=== PATIENT | female | born 2000 | race Two or more races ===

== ENCOUNTER → 2023-09-14 | Emergency (ER) | payer OTHER ==
[~2023-09-14] VITALS: Ht 162.6 cm; Wt 54.0 kg
[2023-09-14 14:10] VITALS: BP 141/64; TEMP 98.7; O2SAT 100
== END | disposition left against medical advice (07) ==
LOC: ER 13:50
DX: R10.13 Epigastric pain (principal); Z53.21 Procedure and treatment not carried out due to patient leaving prior to being seen by health care provider